=== PATIENT | female | born 1955 | race Caucasian/White ===

== ENCOUNTER 2017-07-02 09:11 | Inpatient (IN) | payer OTHER ==
[~2017-07-02] VITALS: Ht 162.6 cm; Wt 82.6 kg
[2017-07-02 10:58] LABS: CALCIUM 8.8 mg/dL (8.5-10.1); CARBON DIOXIDE 29.6 mmol/L (21-32); CHLORIDE SERUM 102 mmol/L (98-107); CREATININE SERUM 0.7 mg/dL (0.6-1.0); GFR1 > 60 mL/min; GLUCOSE SERUM 117 mg/dL (74-106); POTASSIUM SERUM 3.1 mmol/L (3.5-5.1); SODIUM SERUM 140 mmol/L (136-145)
[2017-07-02 11:00] LABS: BASOPHIL % 0.3 % (0-2); PLATELET COUNT 244 x10^3mcL (130-400); RED CELL DISTRIBUTION WIDTH 13.8 % (11.5-14.5)
[2017-07-02 11:03] LABS: ALKALINE PHOSPHATASE 69 U/L (46-116); ALT/SGPT 23 U/L (14-59); AST/SGOT 47 U/L (15-37); BILIRUBIN TOTAL 0.83 mg/dL (0.20-1.00); LIPASE 72 IU/L (73-393); TOTAL PROTEIN, SERUM 7.9 g/dL (6.4-8.2)
[2017-07-02] MEDS ORDERED: VOLTAREN-XR100 MG PO (12:32)
[2017-07-02] MEDS ORDERED: ZOCOR10 MG PO (12:32)
[2017-07-02] MEDS ORDERED: IBUPROFEN400 MG PO (12:33)
[2017-07-02] MEDS ORDERED: PROTONIX20 MG PO (12:33)
[2017-07-02 13:15] VITALS: BP 139/68
[2017-07-02 14:04] VITALS: BP 139/68
[2017-07-02 16:09] LABS: T3 TOTAL 0.9 ng/mL
[2017-07-02 16:31] LABS: MAGNESIUM 2.1 mg/dL (1.8-2.4); PHOSPHOROUS 3.2 mg/dL (2.5-4.9)
[2017-07-02 16:33] LABS: CHOLESTEROL/HDL RATIO 2.2
[2017-07-02 16:51] LABS: FREE T4 1.4 ng/dL (0.76-1.46); T4(THYROXINE) 11.3 ug/dL (4.7-13.3)
[2017-07-02 17:03] LABS: UA SPECIFIC GRAVITY 1.015 (1.005-1.035); microscopic required? YES; urine erythrocyte 1+ (NEGATIVE)
[2017-07-02 17:13] VITALS: BP 136/63
[2017-07-02 17:14] LABS: AMPHETAMINE QUAL UR NONE DETECTED (NEG <=1000)
[2017-07-02 21:55] VITALS: BP 102/70; BP 136/55
[2017-07-03] VITALS (11 sets, daily range): BP systolic 96–121; BP diastolic 18–65
[2017-07-03 06:41] LABS: BASOPHIL % 0.2 % (0-2); PLATELET COUNT 224 x10^3mcL (130-400); RED CELL DISTRIBUTION WIDTH 13.8 % (11.5-14.5)
[2017-07-03 06:53] LABS: CALCIUM 8.3 mg/dL (8.5-10.1); CARBON DIOXIDE 27.5 mmol/L (21-32); CHLORIDE SERUM 104 mmol/L (98-107); CREATININE SERUM 0.6 mg/dL (0.6-1.0); GFR1 > 60 mL/min; GLUCOSE SERUM 105 mg/dL (74-106); POTASSIUM SERUM 3.3 mmol/L (3.5-5.1); SODIUM SERUM 139 mmol/L (136-145)
[2017-07-04 05:50] VITALS: BP 106/53
[2017-07-04 05:54] LABS: BASOPHIL % 0.5 % (0-2); PLATELET COUNT 174 x10^3mcL (130-400); RED CELL DISTRIBUTION WIDTH 13.8 % (11.5-14.5)
[2017-07-04 06:03] LABS: CALCIUM 7.9 mg/dL (8.5-10.1); CHLORIDE SERUM 104 mmol/L (98-107); CREATININE SERUM 0.7 mg/dL (0.6-1.0); GFR1 > 60 mL/min; GLUCOSE SERUM 93 mg/dL (74-106); SODIUM SERUM 139 mmol/L (136-145)
[2017-07-04 10:04] VITALS: BP 96/49
[2017-07-04 14:35] VITALS: BP 119/62
[2017-07-04] MEDS ORDERED: ECO81 PO (14:49)
[2017-07-04] MEDS ORDERED: METOPROLOL TART25 M1 PO (14:51)
[2017-07-04] MEDS ORDERED: ZOFRAN ODT4 MG SL (14:51)
[2017-07-04] MEDS ORDERED: LISINOPRIL5 MG PO (14:52)
[2017-07-04] MEDS ORDERED: PERCOCET1 TA5 PO (14:55)
[2017-07-04] MEDS ORDERED: LAC PO (15:09)
[2017-07-04] MEDS ORDERED: AUG500 PO (15:09)
[2017-07-04 15:26] VITALS: BP 119/62
== END 2017-07-04 18:14 | disposition home or self-care (01) | DRG 444 ==
LOC: ED 09:11 → DU 12:31
PROVIDERS: Emergency Medicine; Internal Medicine Cardiovascular Disease; ADMIT Family Medicine
PROC: B2111ZZ Fluoroscopy of Multiple Coronary Arteries using Low Osmolar Contrast (ICD-10-PCS; 2017-07-03)
PROC: B2151ZZ Fluoroscopy of Left Heart using Low Osmolar Contrast (ICD-10-PCS; 2017-07-03)
PROC: 4A023N7 Measurement of Cardiac Sampling and Pressure, Left Heart, Percutaneous Approach (ICD-10-PCS; principal; 2017-07-03 09:00)
DX: K80.10 Calculus of gallbladder with chronic cholecystitis without obstruction (principal); I21.4 Non-ST elevation (NSTEMI) myocardial infarction; D68.69 Other thrombophilia; E87.6 Hypokalemia; R73.03 Prediabetes; K21.9 Gastro-esophageal reflux disease without esophagitis; E78.5 Hyperlipidemia, unspecified; E78.00 Pure hypercholesterolemia, unspecified; R73.9 Hyperglycemia, unspecified; R31.9 Hematuria, unspecified; I25.10 Atherosclerotic heart disease of native coronary artery without angina pectoris; Z90.89 Acquired absence of other organs; Z83.3 Family history of diabetes mellitus; Z81.8 Family history of other mental and behavioral disorders; Z80.49 Family history of malignant neoplasm of other genital organs; Z68.31 Body mass index [BMI] 31.0-31.9, adult
CPT/HCPCS: CLHCL; 83880; 84439; C1769; C1887; C1894; J0290; J1170; J1644; J1956; J2001; J2250; J2270; J2405; J3010; J3480; J3490; J7030; J7050; Q0092; Q0163; Q9967